=== PATIENT | female | born 1990 ===

== ENCOUNTER 2016-12-02 15:20 | Emergency (ER) | payer SELFPAY ==
--- NOTE | 2016-12-02 16:06 | ED ---
HPI Chest Pain - HPI Summary HPI Summary: Patient presents for delayed evaluation of intermittent, atraumatic, non radiating L anterior chest wall pain for the last several months. No positonal or exertional component, resp symptoms, OCP use, early FHX cardiac anomaly, allev factors attempted. Aggrav by palpation. Came for evaluation since does not have PCP. Occurred previously in childhood. - History of Current Complaint Chief Complaint: EDChestPainROMI Time Seen by Provider: 12/02/16 15:43 Hx Obtained From: Patient, Family/Rod Tape Operator - Girlfriend Timing: Intermittent Initial Severity: Mild Current Severity: Mild Pain Intensity: 6 - Allergy/Home Medications Allergies/Adverse Reactions: Allergies Allergy/AdvReac Type Severity Reaction Status Date / Time No Known Allergies Allergy Verified 12/02/16 15:28 PMH/Surg Hx/FS Hx/Imm Hx Previously Healthy: Yes Infectious Disease History: No Infectious Disease History: Denies: Traveled Outside the [place] in Last 30 Days - Family History Known Family History: Positive: None - Social History Alcohol Use: Rare Substance Use Type: Reports: None Smoking Status (MU): Never Smoked Tobacco Review of Systems Negative: Fever, Chills Positive: Chest Pain. Negative: Palpitations Respiratory: Negative Negative: Shortness Of Breath, Cough Gastrointestinal: Negative All Other Systems Reviewed And Are Negative: Yes Physical Exam Triage Information Reviewed: Yes Vital Signs On Initial Exam: Initial Vitals Temp Pulse Resp BP Pulse Ox 98.1 F 74 18 124/84 100 12/02/16 15:28 12/02/16 15:28 12/02/16 15:28 12/02/16 15:28 12/02/16 15:28 Vital Signs Reviewed: Yes Appearance: Positive: Well-Appearing, No Pain Distress, Well-Nourished Skin: Positive: Warm, Skin Color Reflects Adequate Perfusion, Dry, Other - Reproducible L anterior, para-sternal T5 level chest wall pain. No rash Head/Face: Positive: Normal Head/Face Inspection Eyes: Positive: Normal, EOMI, BRINA ENT: Positive: Normal ENT inspection, Hearing grossly normal, Pharynx normal Respiratory/Lung Sounds: Positive: Clear to Auscultation, Breath Sounds Present Cardiovascular: Positive: Normal, RRR, Pulses are Symmetrical in both Upper and Lower Extremities Abdomen Description: Positive: Nontender, No Organomegaly, Soft Musculoskeletal: Positive: Normal, Strength/ROM Intact Neurological: Positive: Normal, Sensory/Motor Intact, Alert, Oriented to Person Place, Time, CN Intact II-III, Reflexes Intact, NV Bundle Intact Distally, Normal Gait Diagnostics - Vital Signs Vital Signs Temp Pulse Resp BP Pulse Ox 12/02/16 15:28 98.1 F 74 18 124/84 100 - Laboratory Lab Statement: Any lab studies that have been ordered have been reviewed, and results considered in the medical decision making process. - EKG No standard instances Cardiac Rate: NL EKG Rhythm: Sinus Rhythm ST Segment: Normal Ectopy: None Chest Pain Course/Dx - Chest Pain Differential Diagnosis/HQI/PQRI: Chest Wall, Lower Respiratory Infection, Pulmonary Embolism, Other: - Primary concern for msk chest wall pain. Low wells , PERC qualifier. Equal pulses with low concern for aneurysm. CXR for occult PNA. DC home with PCP FU and supportive care. - Diagnoses Provider Diagnoses: Chest wall pain Discharge - Discharge Plan Condition: Stable Disposition: HOME Patient Education Materials: Chest Wall Pain (ED) Referrals: No Primary Care Phys,NOPCP [Primary Care Provider] -
--- NOTE | 2016-12-02 16:16 | RAD ---
INDICATION: Chest pain COMPARISON: September 06, 2016 TECHNIQUE: PA and lateral dual-energy views were obtained. FINDINGS: Bones/Soft Tissues: There are no acute bony findings. Cardiomediastinal: The cardiomediastinal silhouette is normal. Lungs: There are no infiltrates. There is no pneumothorax. Pleura: There are no pleural effusions. Other: None IMPRESSION: NORMAL CHEST.
[2016-12-02 16:34] VITALS: BP 103/85
== END 2016-12-02 16:46 | disposition home or self-care (01) ==
LOC: ED 15:20
DX: R07.89 Other chest pain (principal)
CPT/HCPCS: 36415; 71020; 86703; 93005; 99282